=== PATIENT | female | born 2000 | race Caucasian/White ===

== ENCOUNTER 2023-05-20 16:29 | Emergency (ER) | payer OTHER, SELFPAY ==
[2023-05-20 16:47] VITALS: BP 121/85; PULSE 110; RESP 16; TEMP 37; O2SAT 100
--- NOTE | 2023-05-20 16:54 | ECG_ITS ---
Measurements Intervals [place] Rate: 81 P: 48 DC: 165 QRS: 56 QRSD: 89 T: 51 QT: 358 QTc: 418 Interpretive Statements SINUS RHYTHM WITH SINUS ARRHYTHMIA NORMAL ECG NO PREVIOUS ECG AVAILABLE FOR COMPARISON Electronically Signed On 05-20-2023 20:06:35 [employer] by Bj Gonzalez D.O.
--- NOTE | 2023-05-20 16:59 | ED.CHESTPAIN ---
HPI - Chest Pain General Chief Complaint: Upper Respiratory Infection Stated Complaint: Pressure in chest;Throat;Ear problem;Vision Time Seen by Provider: 05/20/23 16:50 Source: patient Mode of arrival: ambulatory Limitations: no limitations History of Present Illness HPI narrative: Shanti is a 23-year-old female patient presenting to the clinic today with complaints of pressure in her chest, globus sensation in her throat, right ear muffled, right sided blurry vision, and dizziness. She reports the dizziness is been over the last few days however all of her other symptoms began today. She started Prozac 2 weeks ago. [place] as though she started having a panic attack today due to her symptoms. States that the chest pressure was as though there is a bubble in her chest. She denies any shortness of breath. Denies any cardiac history. Related Data Home Medications Medication Instructions Recorded Confirmed fluoxetine 20 mg capsule 20 mg PO DAILY 05/20/23 05/20/23 methylphenidate HCl 54 mg 108 mg PO DAILY 05/20/23 05/20/23 tablet,extended release 24 hr Allergies Allergy/AdvReac Type Severity Reaction Status Date / Time No Known Allergies Allergy Verified 05/20/23 16:54 Review of Systems Review of Systems: Pertinent positives per HPI. Patient denies any fever, chills, rash, headache, cough, runny nose, sore throat, shortness of breath, palpitations, nausea, vomiting, diarrhea, constipation, abdominal pain, or any urinary issues. PMFSH Comments At the time of my signature, I reviewed and agree with the nursing past medical, surgical, social, and family history. There is no relevant family history pertinent to the patient complaint. Exam Narrative: General: Well-developed, well nourished, in no apparent distress Head: Normocephalic, atraumatic Eyes: Pupils equally round and reactive to light bilaterally, EOM intact, sclera and conjunctive clear, no discharge, lids normal Ears: TMs intact and clear, ear canals clear, no drainage, grossly hearing normal. Nose: Nares patent, no discharge, no inflammation, no sinus tenderness. Mouth: Oropharynx without lesions or masses, good dentition, MMM. Neck: Supple, trachea midline, no enlargement of anterior or posterior cervical nodes, no thyroid masses or goiter palpable. Cardio: Regular rate and rhythm, s1 and s2 normal, no murmur appreciated. Resp: Clear to auscultation bilaterally anteriorly and posteriorly, no rhonchi, rales, wheezing or rubs Course Course Emergency Course: Portions of this record may have been created with voice recognition software. Level of Care: Express Care Visit Vital Signs Vital signs: Vital Signs Temperature 37.0 C 05/20/23 16:47 Pulse Rate 110 H 05/20/23 16:47 Respiratory Rate 16 05/20/23 16:47 Blood Pressure 121/85 05/20/23 16:47 Pulse Oximetry 100 05/20/23 16:47 Temperature 37.0 C 05/20/23 16:47 Pulse Rate 110 H 05/20/23 16:47 Respiratory Rate 16 05/20/23 16:47 Blood Pressure 121/85 05/20/23 16:47 Pulse Oximetry 100 05/20/23 16:47 Vital signs reviewed Transfer Transfered to: [facility] Transportation: Other (Private car) Transfer rationale: Chest discomfort, revision, dizziness, globus sensation, right ear muffled Accepting physician: Dr. Ruiz Transfer comments: Transfer via private car MDM - Chest Pain MDM Narrative Medical decision making narrative: At the time of visit patient is resting comfortably on the exam table. EKG shows sinus rhythm with sinus arrhythmia with heart rate of 81 beats per minute without ectopy. Recommend transfer to the ER for further evaluation. Patient agrees to be transfer to [facility]. Contacted Herman REIS at [facility] and report was given for continuity of care. Dr. Ruiz accepts patient. Patient to be transferred via private car Differential Diagnosis Differential diagnosis: Likely atypical chest pain, st elevation myocardial infarction,
== END 2023-05-20 17:05 | disposition short-term general hospital (02) ==
PROVIDERS: Emergency Provider Nurse Practitioner Family
DX: R07.9 Chest pain, unspecified (principal); R09.89 Other specified symptoms and signs involving the circulatory and respiratory systems; R42 Dizziness and giddiness; H53.8 Other visual disturbances; H91.91 Unspecified hearing loss, right ear
CPT/HCPCS: 93005; 99213; G0463

== ENCOUNTER 2023-05-20 17:37 | Emergency (ER) | payer OTHER, SELFPAY ==
[2023-05-20 17:40] VITALS: BP 106/60; PULSE 62; RESP 20; TEMP 36.6; O2SAT 99
--- NOTE | 2023-05-20 18:38 | PC.NURSE ---
Pt called for room placement, not in waiting room.
--- NOTE | 2023-05-20 18:44 | PC.NURSE ---
No answer when called for room placement.
== END 2023-05-20 18:44 | disposition left against medical advice (07) ==
DX: R42 Dizziness and giddiness (principal)
CPT/HCPCS: 99199